=== PATIENT | male | born 2000 | race Caucasian/White ===

== ENCOUNTER 2025-06-11 07:44 | Emergency (ER) | payer OTHER, SELFPAY ==
--- NOTE | ~2025-06-11 | XR_ITS ---
EXAMINATION: XR FINGER, RIGHT CLINICAL INFORMATION: LAC ON CISO RIF COMPARISON: None available. TECHNIQUE: PA view of the right hand. Oblique and lateral views of the second digit of the right hand. FINDINGS: No acute cortical disruption. No lytic or blastic lesions. No metallic or radiopaque foreign body. No osteolysis. No gross malalignment. Soft tissue swelling. XR/XR finger RT min 2V IMPRESSION: No acute fracture or gross foreign body. Electronically signed by: Hernán Prasad MD 06/11/2025 08:27 AM [facility]
[2025-06-11 08:11] VITALS: BP 120/68; PULSE 60; RESP 16; TEMP 36.6; O2SAT 98; BMI 20.8
--- NOTE | 2025-06-11 08:54 | ED_ITS ---
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 He was able to irrigate the finger. No active bleeding. UTD on tetnus. Denies numbness/tingling/weakness of the extremity. Related Data Allergies Allergy/AdvReac Type Severity Reaction Status Date / Time No Known Allergies Allergy Verified 06/11/25 08:13 Review of Systems Review of Systems: Yes all other systems are reviewed and are negative [facility] Past Medical History Attestation statement: The following information was validated with the patient. Source: old records reviewed and nursing notes reviewed Social History Social History Advance Directives: No Advance Directives Information Provided: Yes Physical Exam Vital Signs: Vital Signs: Last Vital Signs Temp 98 F 06/11/25 10:25 Pulse 60 06/11/25 10:25 Resp 16 06/11/25 10:25 BP 120/68 06/11/25 10:25 Pulse Ox 98 06/11/25 10:25 O2 Del Method Room Air 06/11/25 10:25 BMI result Body Mass Index 20.8 General: Well appearing, in no acute distress. Skin: Warm, dry, intact. No rashes or lesions. Head: Normocephalic, atraumatic. EENT: Hearing is intact b/l. Conjunctiva clear. Sclera is anicteric. PERRLA. EOM intact. Moist mucous membranes.? Cardiac: Chest wall symmetric. RRR Lungs: Normal respiratory effort without accessory muscle use. CTA bilaterally. Ext: + superficial skin avulsion in v shape noted to finger pad of right 2nd digit. no nail/nail bed involvement. no visible bone. no active bleeding. FROM intact to right 2nd digit, finger and ultrasound technologist strength intact, finger to thumb opposition intact. sensation intact to light touch. 2+ radial pulse. Neuro: AOx3. Normal speech. Ambulating with steady gait. Course Course Course Narrative: avulsion injury thoroughly cleansed with saline/ iodine. no retained FB or visible bone. xrs negative for fracture, fb. dermabond applied. tdap is UTD as of 4 yrs ago per patient. Patient has remained stable throughout ED visit today. Discussed worrisome signs and symptoms and when to return to the ED. All questions answered at this time. Patient is agreeable with disposition and stable for discharge. 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 vital signs stable. he is well appearing, in NAD. on exam, superficial skin avulsion in v shape noted to finger pad of right 2nd digit. no nail/nail bed involvement. no visible bone. no active bleeding. FROM intact to right 2nd digit, finger and ultrasound technologist strength intact, finger to thumb opposition intact. sensation intact to light touch. 2+ radial pulse. Differential diagnosis includes abrasion, avulsion injury, laceration, fracture Plan for radiographs, repair w/ dermabond, pain control, dispo. Differential Diagnosis Differential Diagnoses: The differential diagnosis associated with the presentation includes as above. Admission/Observation not indicated. Independent Interpretation I performed an independent interpretation of an: Plain X-Ray Interpretation: xr right second digit without fracture Radiology Impression Discussion of test interpretation with radiology: I have reviewed the radiologist's reading. 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 TECHNIQUE: PA view of the right hand. Oblique and lateral views of the second digit of the right hand. FINDINGS: No acute cortical disruption. No lytic or blastic lesions. No metallic or radiopaque foreign body. No osteolysis. No gross malalignment. Soft tissue swelling. XR/XR finger RT min 2V IMPRESSION: No acute fracture or gross foreign body. Electronically signed by: Hernán Prasad MD 06/11/2025 08:27 AM [facility] Independent Historian Clinical information obtained from an independent historian. History obtained from or confirmed by: Parent Prescription Management I considered prescription management with: Pain Medication Social Determinants Patient?s care significantly limited by Social Determinants of Health including: Other Social Determinant of Health Procedures Laceration Laceration 1: Site: hand Side (If applicable): right Size (cm): 2 Description: other (v shape avulsion) Depth: simple, single layer Pre-repair: wound explored Skin layer closed with: skin adhesive Technique: skin adhesive Critical Care Time Critical Care Time Critical Care Time: No Discharge Plan Discharge Clinical Impression: Avulsion of skin of finger Patient Disposition: Home, Self-Care Instructions: Skin Avulsion (ED) Additional Instructions: You have been evaluated in the Emergency Department today for a skin avulsion injury to your right pointer finger. The area was repaired with dermabond skin adhesive - see home care instructions. Do not wet the area for at least 6 hours. After 6 hours, you may gently wash the area, do not soak in any sitting water. Please keep the area surrounding the laceration clean and dry. Please keep the area out of the sunlight for the next 6 months to help prevent scarring.? If you develop redness or swelling at the site of your laceration or note any discharge/ fluid coming from the laceration, please come back to the ER for a wound check. You state that your tetnus is up to date so this was not administered today. I recommend you take 600mg ibuprofen every 6 hours or tylenol 650mg every 6 hours as needed for pain. If needed, you can alternate these medications so that you take one medication every 3 hours. For example, at noon take ibuprofen, then at 3pm take tylenol, then at 6pm take ibuprofen. Please follow up with your primary care physician as needed. Return to the Emergency Department if you experience discharge from your laceration, redness around your laceration, warmth around your laceration, fever, vomiting, numbness, tingling, or any other concerning symptoms. In the case of an emergency call 911. As this was a work-related injury, I have provided you with a referral to the [facility] for follow up. Call them. Referrals: [facility] [Outside] Physician,Unknown J [Primary Care Provider, Medical] Interventions: ED Discharge Assessment Last Done: 06/11/25 10:25 Discharge Date/Time: 06/11/25 10:26 Print Language: Turkish
--- OUTSIDE RECORDS SUMMARY | 2025-06-11 08:56 | XMS_ITS | Clinical Summary ---
Author Organization [facility] Prior to 11/24/24 Address [address] [place] [address] Care Team Providers Care Life Skills Coordinator Volunteer Name Role Phone Unavailable Primary Care Provider Unavailabl e Social History Tobacco Use Types Packs/Day Years Used Date Smoking Tobacco: Never Assessed Sex and Gender Information Value Date Recorded Sex Assigned at Not on file Gender Identity Not on file Sexual Orientation Not on file Plan of Treatment Health Maintenance Due Date Last Done Comments Hepatitis B Vaccines (1 of 3 - 3-dose series) 2002 Hepatitis C Screening 2002 COVID-19 Vaccine (#1) 04/18/2003 Depression Screening 2014 Preventative Health Evaluation 2020 DTap / Tdap / Td (1 - Tdap) 2021 Influenza Vaccine (#1) 2025 Pneumococcal Vaccine Aged Out No long er eligible based on patient's age to complete this topic RSV Ped < 20 months Aged Out No longe r eligible based on patient's age to complete this topic Insurance Payer Benefit Plan / Group Subscriber ID Effective Dates Phone Address [facility] [id number] Effective for all dates [id number] [place] [address] HMO
--- OUTSIDE RECORDS SUMMARY | 2025-06-11 08:56 | XMS_ITS | Clinical Summary ---
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 Name Role Phone Unavailable Primary Care Provider Unavailabl e Social History Tobacco Use Types Packs/Day Years Used Date Smoking Tobacco: Never Assessed Sex and Gender Information Value Date Recorded Sex Assigned at Not on file Legal Sex Male 4:03 PM EST Gender Identity Not on file Sexual Orientation Not on file Plan of Treatment Health Maintenance Due Date Last Done Comments HPV Vaccines (1 - Male 3-dos e series) 2017 Meningococcal B Vaccine (1 o f 2 - Standard) 2018 DTaP,Tdap,and Td Vaccines (1 - Tdap) 2021 Hepatitis B Vaccines (1 of 3 - 19+ 3-dose series) 2021 Depression Screening 06/27/2024 COVID-19 Vaccine (1 - 2024-2 6 season) 2025 Influenza Vaccine (#1) 2025 RSV Immunization Adult Patie nts (1 - 1-dose 75+ series) 2077 HIB Vaccines Aged Out No longer eligi ble based on patient's age to complete this topic Hepatitis A Vaccines Aged Out No long er eligible based on patient's age to complete this topic IPV Vaccines Aged Out No longer eligi ble based on patient's age to complete this topic MMR Vaccines Aged Out No longer eligi ble based on patient's age to complete this topic Meningococcal ACWY Vaccine Aged Out N o longer eligible based on patient's age to complete this topic Pneumococcal Vaccine: Pediat rics (0 to 5 Years) and At-Risk Patients (6 to 49 Years) Aged Out No longer eligible b ased on patient's age to complete this topic RSV Immunization Patients Un calvin 20 months Aged Out No longer eligible b ased on patient's age to complete this topic Varicella Vaccines Aged Out No longer eligible based on patient's age to complete this topic
--- OUTSIDE RECORDS SUMMARY | 2025-06-11 08:56 | XMS_ITS | Clinical Summary ---
Author Organization [facility] Address [address] [place] [address] Care Team Providers Care Hearing Consultant Name Role Phone Thierry Foss MD Primary Care Provider Unavaila Thierry Garcia MD Unavailable Unavailable Immunizations Immunization Administration Dates Next Due DTaP 04/24/2007,01/23/2004 DTaP-HEP B-IPV (Pediarix) 05/07/2003,03/06/2003, 2002 Hib (HbOC) 01/23/2004, 3,03/06/2003,2002 IPV 04/24/2007,10/23/2003 Influenza,split(incl.purifie d surface antigen) 04/24/2007,04/24/2004 MMR 04/24/2007,01/23/2004 PCV-7 12/17/2004, 3,03/06/2003,2002 Varicella 04/24/2007,10/23/2003 Social History Tobacco Use Types Packs/Day Years Used Date Smoking Tobacco: Never Assessed Sex and Gender Information Value Date Recorded Sex Assigned at Not on file Legal Sex Male 7:17 PM EDT Gender Identity Not on file Sexual Orientation Not on file Plan of Treatment Health Maintenance Due Date Last Done Comments Hepatitis C Screening 2002 DTaP/Tdap/Td (6 - Tdap) 2013 04/24/20 07, 01/23/2004, 05/07/2003, Additional history exists HPV Vaccine (1 - Male 3-dose series) 2017 COVID-19 Vaccine (1 - season) 2025 Influenza (#1) 2025 04/24/2007, 04/24/2004 Zoster (Shingrix) (1 of 2) 2052 04/24/2007, Hep B Completed 05/07/2003, 02/25, 2002 Hib Completed 01/23/2004, 04/27, 03/06/2003, Additional history exists Pneumococcal Aged Out 12/17/2004, 04/27, 03/06/2003, Additional history exists No longer eligible based on patient's age to complete this topic Hep A Aged Out No longer eligi ble based on patient's age to complete this topic Meningococcal ACWY Aged Out No longer eligible based on patient's age to complete this topic Care Teams Hearing Consultant Relationship Specialty Start Date End Date Thierry Foss MD PCP - General 01/31/23 Thierry Foss MD PCP - Backup PCP Pediatrics 07/28/23
[2025-06-11 10:25] VITALS: BP 120/68; PULSE 60; RESP 16; TEMP 36.6; O2SAT 98
== END 2025-06-11 10:26 | disposition home or self-care (01) ==
PROVIDERS: Emergency Provider Emergency Medicine Emergency Medical Services
DX: S61.210A Laceration without foreign body of right index finger without damage to nail, initial encounter (principal); W31.89XA Contact with other specified machinery, initial encounter; Y93.89 Activity, other specified; Y92.89 Other specified places as the place of occurrence of the external cause; Y99.0 Civilian activity done for income or pay
CPT/HCPCS: 12001; 73140; 99283

== ENCOUNTER → 2025-06-11 08:19 | Outpatient (BNV) | payer OTHER, SELFPAY | PROVIDERS: Emergency Provider Emergency Medicine Emergency Medical Services; Visit Provider Radiology Diagnostic Radiology | DX: S61.219A Laceration without foreign body of unspecified finger without damage to nail, initial encounter (principal) | CPT/HCPCS: 73140 ==